=== PATIENT | female | born 1995 | race Caucasian/White ===

== ENCOUNTER 2018-01-06 05:56 | Inpatient (IN) ==
[~2018-01-06 05:56] MED LIST: LIDOCAINE HCL 2 % 10 ML JELLY URO-JECT TOPICAL PRN
[2018-01-06] MEDS ORDERED: FAMOTIDINE 20 MG/2 ML VIAL IVP ONE (06:00)
[2018-01-06] MEDS ORDERED: CefOXitin Inj 2 GM in Sodium Chloride 0.9% 100 ML IV ONE (06:00)
[2018-01-06] MEDS ORDERED: Lactated Ringers 1,000 ML PRIMARY IV ONE (06:00)
[2018-01-06] MEDS ORDERED: CITRIC ACID/SODIUM CITRATE 30 ML CUP PO ONE (06:00)
[2018-01-06] MEDS ORDERED: Oxytocin 20 Units + LR 20 UNIT/1,000 ML BAG IV SCH ×2 (06:00→10:32)
[2018-01-06] MEDS ORDERED: Metoclopramide Inj 10 MG/2 ML VIAL IV ONE (06:00)
[2018-01-06] MEDS ORDERED: Lactated Ringers 1,000 ML PRIMARY IV SCH ×2 (06:00→06:45)
[2018-01-06] MEDS ORDERED: Ondansetron ODT Tab 8 MG TAB PO PRN (06:44)
[2018-01-06] MEDS ORDERED: HYDROmorphone 2 MG/1 ML IVP PRN (06:44)
[2018-01-06] MEDS ORDERED: ONDANSETRON 4 MG/2 ML VIAL IVP PRN ×2 (06:44→10:32)
[2018-01-06] MEDS ORDERED: LIDOCAINE W/ SODIUM BICARB 0.5 ML SYR SUBD PRN (06:44)
[2018-01-06] MEDS ORDERED: ATROPINE SULFATE 0.4 MG/1 ML VIAL IVP PRN (06:44)
[2018-01-06] MEDS ORDERED: PHENYLEPHRINE 10,000 MCG/1 ML VIAL ONE (06:56)
[2018-01-06] MEDS ORDERED: Sodium Chloride 0.9% vial 10 ML ONE ×2 (06:58→07:02)
[2018-01-06] MEDS ORDERED: ePHEDrine Inj 50 MG/ML AMP ONE (07:01)
[2018-01-06] MEDS ORDERED: Oxytocin 20 Units + LR 20 UNIT/1,000 ML BAG IV ONE (07:07)
[2018-01-06] MEDS: LIDOCAINE W/ SODIUM BICARB 0.5 ML SYR SUBD PRN ×3 (07:34→07:39)
[2018-01-06 07:50] LABS: Hematocrit [HCT] 36.2 % (37.0-47.0); Hemoglobin [HGB] 12.5 g/dL (12.0-16.0); MEAN CORPUSCULAR HEMOGLOBIN 30.2 PG (27-31); MEAN CORPUSCULAR HGB CONC 34.5 g/dL (33-37); MEAN CORPUSCULAR VOLUME 87.4 FL (81-99); MEAN PLATELET VOLUME 9.2 FL (7.4-12.2); RED BLOOD COUNT 4.14 10^6/uL (4.20-5.40)
[2018-01-06] MEDS ORDERED: Lactated Ringers 2,000 ML PRIMARY IV ONE (09:26)
--- NOTE | 2018-01-06 10:01 | CRNA.PROGR ---
Anesthesia Time - - Start date: 01/06/18 End date: 01/06/18 - Procedure/Recovery Time Anesthesia : Time In: 08:12 Anesthesia : Time Out: 09:39 Anesthesia : Total Time: 87 - Total Anesthesia Time Total Anesthesia Time (minutes): 87 - Other Weight: 109.316 kg Height: 5 ft 5 in Body Mass Index (BMI): 40.1 Physical Status: P2 (morbid obesity) Anesthesia Type: Spinal Block Obstetrics: C/S anesthesia only
--- NOTE | 2018-01-06 10:02 | CRNA.PROGR ---
Post Anesthesia Phase II - Post Anesthesia Phase II Patient Stable and Discharged To: OB Care Assumed By Surgeon: Jhon Carreno MD Temperature: 96.7 F Pulse Rate: 66 Respiratory Rate: 16 Blood Pressure: 93/51 Pulse Ox: 98 Total Nae Score at Discharge: 9 Post Anesthesia Discharge Criteria Met: Yes
--- NOTE | 2018-01-06 10:02 | CRNA.PROGR ---
Anesthesia Recovery Phase I - Post Anesthesia Evaluation Patient's Condition on Arrival in Phase I: Stable Patient's Condition on Arrival in Phase II: Stable Pain Level: 0
[2018-01-06] MEDS: fentaNYL Inj 100 MCG/2 ML VIAL IVP PRN ×2 (10:08→10:37)
--- NOTE | 2018-01-06 10:08 | OB.OP.NOTE ---
Operative Report Surgeon: lOga Carreno MD Flat Knitter Helper: Eloy Neff MD Anesthesia Type: Regional Anesthesia Provider: Madeline Potter CRNA Surgery Date: 01/06/18 Preoperative Diagnosis: Previous section x1 Postoperative Diagnosis: same, delivered Procedure: Repeat section Complications: none Estimated Blood Loss (mL): 750 Urine Output (mL): 150 Fluids: 2600 cc LR Indications: We do not offer vaginal after section trials at our facility and the patient did not desire this. She is requesting a repeat section. Findings: viable male infant, in cephalic presentation, clear amniotic fluid. Description of Procedure: The patient was taken to the operating room where spinal anesthesia was found to be adequate. She was then prepared and draped in the normal sterile fashion in the dorsal supine position with a leftward tilt. A Pfannenstiel skin incision was then made with the scalpel and carried through to the underlying layer of fascia with the Bovie. The fascia was incised in the midline and the incision extended laterally with the Bovie. The superior aspect of the fascial incision was then grasped with the Olga clamps, elevated, and the underlying rectus muscles dissected off bluntly. Attention was then turned to the inferior aspect of this incision which, in a similar fashion, was grasped with the Olga clamps and the rectus muscles dissected off both bluntly and with the Bovie. The rectus muscles were then in the midline, and the peritoneum identified and entered digitally. The peritoneal incision was then extended superiorly and inferiorly with good visualization of the bladder. The Jasvir retractor was then inserted and the vesicouterine peritoneum was identified. The lower uterine segment was incised in a transverse fashion with the scalpel. The uterine incision was then extended laterally in a blunt fashion. The 's head was delivered atraumatically. The nose and mouth were suctioned with the bulb suction and the cord clamped and cut after 45 seconds for delayed cord clamping. The infant was handed off to the awaiting nurse. Cord gases and cord blood were sent for analysis. The placenta was then removed manually; the uterus exteriorized, and cleared of all clots and debris. The uterine incision was repaired with 0 Vicryl in a running, locked fashion. A second layer of the same suture was used to obtain excellent hemostasis. The peritoneal cavity was then copiously irrigated with warm saline. The uterus was returned to the abdomen. The paracolic gutters were copiously irrigated with warm saline and a second look at the uterine incision continued to reveal excellent hemostasis. The peritoneum was closed with 3-0 Vicryl. The fascia was reapproximated with 0 Vicryl in a running fashion. The subcutaneous space was irrigated copiously with warm saline and then closed first with 3-0 Vicryl and then more superficially with Insorb absorbable sutures. The skin was reapproximated with Steri-Strips and a Silverlon dressing applied. Fundal massage was completed with no clots in vaginal vault. The patient tolerated the procedure well. Sponge, lap, and needle counts were correct x2. Mefoxin was given preoperatively less than one hour prior to incision time. The patient was taken to the recovery room in stable condition.
[2018-01-06] MEDS ORDERED: Nalbuphine Inj 20 MG/ML Ampule IVP PRN (10:32)
[2018-01-06] MEDS ORDERED: diphenhydrAMINE 50 MG/1 ML VIAL IV PRN (10:32)
[2018-01-06] MEDS ORDERED: diphenhydrAMINE 25 MG CAPSULE PO PRN (10:32)
[2018-01-06] MEDS ORDERED: DIPH,PERTUSS,TET(ADACEL) VAC/PF 0.5 ML (Tdap) IM ONE (10:32)
[2018-01-06] MEDS ORDERED: CALCIUM CARBONATE 500 MG (TUMS) CHEWABLE TABLET PO PRN (10:32)
[2018-01-06] MEDS ORDERED: BUTORPHANOL TARTRATE 2 MG/1 ML VIAL IVP PRN (10:32)
[2018-01-06] MEDS ORDERED: Naloxone Inj 0.01 MG, Sodium Chloride 0.9% vial 1 ML IVP PRN ×2 (10:32)
[2018-01-06] MEDS ORDERED: FAMOTIDINE 20 MG/2 ML VIAL IVP PRN (10:32)
[2018-01-06] MEDS ORDERED: LANOLIN HPA 40 GM TUBE TOPICAL PRN (10:32)
[2018-01-06] MEDS: oxyCODONE-ACETAMINOPHEN 5-325 TAB PO PRN ×5 (11:17→21:45)
[2018-01-06] MEDS: KETOROLAC 15 MG/1 ML VIAL IVP SCH ×2 (11:54→17:28)
[2018-01-07] MEDS: KETOROLAC 15 MG/1 ML VIAL IVP SCH ×3 (00:02→19:13)
[2018-01-07] MEDS: oxyCODONE-ACETAMINOPHEN 5-325 TAB PO PRN ×5 (00:30→19:16)
[2018-01-07] MEDS: D5-LR 1,000 ML PRIMARY IV SCH ×3 (01:18→19:12)
[2018-01-07 05:30] LABS: Hematocrit [HCT] 30.7 % (37.0-47.0); Hemoglobin [HGB] 10.3 g/dL (12.0-16.0); MEAN CORPUSCULAR HEMOGLOBIN 30.2 PG (27-31); MEAN CORPUSCULAR HGB CONC 33.6 g/dL (33-37); MEAN PLATELET VOLUME 9.5 FL (7.4-12.2); RED BLOOD COUNT 3.41 10^6/uL (4.20-5.40)
[2018-01-07] MEDS: HEPARIN 5000 UNIT/1 ML SUBCUT SCH ×2 (10:02→17:53)
[2018-01-07] MEDS: Prenatal Multivitamin Tab 1 TAB TAB PO SCH (10:02)
[2018-01-07] MEDS: Senna/Docusate Tab 1 TAB TAB PO SCH ×2 (10:03→21:13)
--- NOTE | 2018-01-07 12:43 | CRNA.PROGR ---
Anesthesia Note - Progress Notes Anesthesia Progress Note: Visited with pt this AM, has been ambulating, a little sore, but tolerable. No complaints this AM. RIP [facility]
[2018-01-07] MEDS: IBUPROFEN 800 MG TABLET PO PRN (13:15)
--- NOTE | 2018-01-07 16:34 | OB.PROGRES ---
Subjective Post Day: 1 Pain Management: PO [place] Catheter: No Flatus: Yes Lochia Color: Rubra/Red Small 10-25 ml Diet: Regular Feeding Method: Exculsively Ambulating: Yes Objective - General General Appearance: POSITIVE: No Acute Distress, Cooperative - Cardiovacular Cardiovascular Exam: POSITIVE: RRR, No Murmur, No Clicks, No Gallops, No Rubs Edema: +1 Pedal Edema Extremities: Negative Poly's - Bilaterally - Respiratory Respiratory Exam: POSITIVE: Clear to Auscultation - Bilaterally, Breathing Non Labored - Abdomen Bowel Sounds: Hypoactive Abdominal Wound Assessment: Silverlone Dressing Assesstment / Plan (1) Status post repeat low transverse section Current Visit: Yes Status: Acute Assessment / Plan: -routine cares. -given her BMI, she has been placed on heparin x 7 days. Pt will also be traveling back to [place] in the next day or 2, so is at increased risk of DVT from that as well. -breast feeding. -rubella immune. -Rh positive. -d/c home tomorrow.
[2018-01-08] MEDS: IBUPROFEN 800 MG TABLET PO PRN ×2 (00:20→10:08)
[2018-01-08] MEDS: HEPARIN 5000 UNIT/1 ML SUBCUT SCH ×2 (01:00→10:10)
[2018-01-08] MEDS: D5-LR 1,000 ML PRIMARY IV SCH (04:17)
[2018-01-08 05:55] VITALS: O2SAT 98
[2018-01-08 08:48] VITALS: RESP 18; TEMP 97
[2018-01-08] MEDS: oxyCODONE-ACETAMINOPHEN 5-325 TAB PO PRN (10:08)
--- NOTE | 2018-01-08 10:08 | DCSUMMARY ---
Hospitalization Summary Admit Date: 01/06/18 Discharge Date: 01/08/18 Primary Diagnosis:: Previous section x 1 Primary Surgery and Date: repeat low transverse section Other Surgery and Date: 01/06/18 Delivery Type: Hospital Course: Pt presented for a repeat section at 39 weeks. Her was notable for a lapse of care between 20 and 32 weeks due to relocating to [place] for her spouse's job. She is Rh negative and rubella immune. / Postop Complications: none Complications: none Exam - Vitals Vital Signs: Vital Signs Temperature 97 F Temperature Source Oral Pulse Rate [Pulse Oximeter] 80 Pulse Rate 70 Respiratory Rate 18 Blood Pressure [Right Arm] 128/80 Blood Pressure 124/72 Pulse Ox 98 Oxygen Flow Rate room air Oxygen Delivery Method Room Air Height 5 ft 5 in Weight 241 lb - General General Appearance: No Acute Distress, Cooperative - Head Head Exam: Normal Inspection, Normocephalic - Eye Eye Exam: POSITIVE: Normal Appearance, EOMI - Neck Neck Exam: Normal Inspection - Respiratory Respiratory Exam: POSITIVE: Clear to Auscultation - Bilaterally, Breathing Non Labored - Cardiovascular Cardiovascular Exam: POSITIVE: RRR, No Murmur - GI/Abdominal GI/Abdominal Exam: POSITIVE: Normal Bowel Sounds, Non Tender, Non Distended, Soft - Extremities Extremities Exam: POSITIVE: +1 Edema - Neurological Neurological Exam: POSITIVE: Alert, Oriented x 3 - Psychiatric Psychiatric Exam: POSITIVE: Normal Affect, Normal Mood - Integumentary Integumentary Exam: POSITIVE: Normal Color, Warm, Dry Patient Problems - Patient Problem List (1) Status post repeat low transverse section Current Visit: Yes Status: Acute Code(s): Z98.891 - History of uterine scar from previous surgery Category: Medical
[2018-01-08] MEDS: Prenatal Multivitamin Tab 1 TAB TAB PO SCH (10:09)
[2018-01-08] MEDS: Senna/Docusate Tab 1 TAB TAB PO SCH (10:10)
[2018-01-08 11:30] VITALS: BP 125/79
== END 2018-01-08 12:21 | disposition home or self-care (01) | DRG 766 ==
LOC: OBOR 05:56 → MED/SURG 10:35 → OBIP 11:32
PROVIDERS: ADMIT Family Medicine; ATTEND Family Medicine